=== PATIENT | male | born 1955 | race Caucasian/White ===

== ENCOUNTER 2022-10-31 17:26 | Inpatient (IN) | payer MEDICARE ==
[~2022-10-31] VITALS: Ht 175.3 cm; Wt 79.4 kg
[2022-10-31] MEDS ORDERED: LISI20TA30 PO (18:14)
[2022-10-31] MEDS ORDERED: INSU3INS6 SQ (18:14)
[2022-10-31] MEDS ORDERED: POTA20TA29 PO (18:14)
[2022-10-31] MEDS ORDERED: LEVE500T20 PO (18:14)
[2022-10-31] MEDS ORDERED: MAGN400T52 PO (18:14)
[2022-10-31] MEDS ORDERED: SERT25TA PO ×2 (18:14→18:23)
[2022-10-31] MEDS ORDERED: INSU100V39 SQ (18:14)
[2022-10-31] MEDS ORDERED: ACET-3117 PO (18:14)
[2022-10-31] MEDS ORDERED: CHLO25TA2 PO (18:14)
[2022-10-31] MEDS ORDERED: POLY17PO4 PO (18:14)
[2022-10-31] MEDS ORDERED: ENOX40DI SUBCUT (18:14)
[2022-10-31] MEDS ORDERED: SENN8.6T19 PO (18:14)
[2022-10-31 21:20] LABS: *BILIRUBIN,URIN NEGATIVE (NEGATIVE); *BLOOD, URINE NEGATIVE (NEGATIVE); *CLARITY,URINE CLEAR (CLEAR); *COLOR,URINE YELLOW (YELLOW); *KETONES,URINE NEGATIVE (NEGATIVE); *PROTEIN,URINE NEGATIVE (NEGATIVE); *UROBILINOGEN,URINE 0.2 E.U./dl (NORMAL); LEUKOCYTE ESTERASE ,URINE NEGATIVE (NEGATIVE); NITRITE, URINE NEGATIVE (NEGATIVE); PH,URINE 6.5 (5.0-8.0)
[2022-10-31 21:23] LABS: *AMPHETAMINE, URINE NEGATIVE (NEGATIVE); *BARBITURATE, URINE NEGATIVE (NEGATIVE); *BENZODIAZEPINE, URINE NEGATIVE (NEGATIVE); *CANNABINOID, URINE POSITIVE (NEGATIVE); *COCCAINE, URINE NEGATIVE (NEGATIVE); *OPIATE, URINE NEGATIVE (NEGATIVE); *PHENCYCLIDINE SCREEN,URINE NEGATIVE (NEGATIVE); FENTANYL, URINE NEGATIVE (NEGATIVE)
[2022-10-31 21:25] LABS: RBC,URINE 0-3 /HPF (0-3); UGLUCOSE 3+ (NEGATIVE); WBC,URINE 0-3 /HPF (0-3)
[2022-10-31] MEDS ORDERED: MAG HYDROX/AL HYDROX/SIMETH 30 ML LIQUID UDC PO PRN (22:30)
[2022-10-31] MEDS ORDERED: ACETAMINOPHEN 325 MG TABLET PO PRN (22:30)
[2022-10-31] MEDS ORDERED: MAGNESIUM HYDROXIDE 30 ML LIQUID UDC PO PRN (22:30)
[2022-10-31] MEDS ORDERED: BLOOD SUGAR DIAGNOSTIC 1 EACH STRIP VI ONE (22:30)
[2022-10-31 22:43] VITALS: BP 137/100; TEMP 97.9; O2SAT 97
[2022-11-01 08:04] VITALS: BP 131/91; TEMP 98.4; O2SAT 98
[2022-11-01] MEDS: VENLAFAXINE XR 37.5 MG CAP.SR.24H PO SCH (10:17)
[2022-11-01] MEDS ORDERED: DEXTROSE 50% 50 ML DISP.SYRIN IV PRN (11:00)
[2022-11-01] MEDS ORDERED: SENNOSIDES 1 TABLET PO SCH (11:00)
[2022-11-01] MEDS ORDERED: ACETAMINOPHEN 325 MG TABLET PO PRN (11:00)
[2022-11-01] MEDS: BLOOD SUGAR DIAGNOSTIC 1 EACH STRIP VI SCH ×3 (11:47→21:08)
[2022-11-01] MEDS: levETIRAcetam 500 MG TABLET PO SCH ×2 (12:27→18:45)
[2022-11-01] MEDS: CHLORTHALIDONE 25 MG TABLET PO SCH (12:27)
[2022-11-01] MEDS: LISINOPRIL 20 MG TABLET PO SCH (12:28)
[2022-11-01] MEDS: INSULIN REGULAR, HUMAN 300 UNIT/3 ML VIAL SQ PRN ×3 (12:29→21:34)
[2022-11-01] MEDS: LORAZEPAM 1 MG TABLET PO PRN (15:00)
[2022-11-01 15:35] VITALS: BP 158/106; TEMP 98; O2SAT 98
[2022-11-01 20:02] VITALS: BP 135/99; TEMP 98.2; O2SAT 98
[2022-11-01] MEDS ORDERED: INSULIN REGULAR, HUMAN 300 UNIT/3 ML VIAL ONE (21:09)
[2022-11-01] MEDS ORDERED: INSULIN GLARGINE,HUM 300 UNITS/3 ML CARTRIDGE SQ ONE (21:22)
[2022-11-01] MEDS: INSULIN GLARGINE,HUM 300 UNITS/3 ML CARTRIDGE SQ SCH (21:32)
[2022-11-02] MEDS: BLOOD SUGAR DIAGNOSTIC 1 EACH STRIP VI SCH ×5 (06:44→21:16)
[2022-11-02 07:59] VITALS: BP 151/111; TEMP 98.2; O2SAT 99
[2022-11-02] MEDS: levETIRAcetam 500 MG TABLET PO SCH ×2 (08:50→17:09)
[2022-11-02] MEDS: VENLAFAXINE XR 37.5 MG CAP.SR.24H PO SCH (08:51)
[2022-11-02] MEDS: CHLORTHALIDONE 25 MG TABLET PO SCH (08:54)
[2022-11-02] MEDS: LISINOPRIL 20 MG TABLET PO SCH (08:54)
[2022-11-02] MEDS: MIRALAX 17 GM POWD.PACK PO SCH (08:54)
[2022-11-02] MEDS: INSULIN REGULAR, HUMAN 300 UNIT/3 ML VIAL SQ PRN ×3 (08:56→17:10)
[2022-11-02] MEDS ORDERED: ENOXAPARIN SODIUM 40 MG/0.4 ML DISP.SYRIN SQ SCH (09:00)
[2022-11-02] MEDS ORDERED: SENNOSIDES 1 TABLET PO PRN (09:36)
[2022-11-02] MEDS ORDERED: DEXTROSE 50% 50 ML DISP.SYRIN IV PRN (13:00)
[2022-11-02 15:29] VITALS: BP 122/64; TEMP 98; O2SAT 99
[2022-11-02 20:00] VITALS: BP 129/99; TEMP 98.2; O2SAT 100
[2022-11-02] MEDS: INSULIN REGULAR, HUMAN 300 UNITS/3 ML VIAL SQ PRN (21:25)
[2022-11-02] MEDS: INSULIN GLARGINE,HUM 300 UNITS/3 ML CARTRIDGE SQ SCH (21:27)
[2022-11-02] MEDS: ZOLPIDEM 5 MG TABLET PO PRN (22:20)
[2022-11-03] MEDS: BLOOD SUGAR DIAGNOSTIC 1 EACH STRIP VI SCH ×4 (06:27→21:05)
[2022-11-03 08:16] VITALS: BP 116/80; TEMP 98; O2SAT 99
[2022-11-03] MEDS: VENLAFAXINE XR 37.5 MG CAP.SR.24H PO SCH (08:21)
[2022-11-03] MEDS: LISINOPRIL 20 MG TABLET PO SCH (08:21)
[2022-11-03] MEDS: levETIRAcetam 500 MG TABLET PO SCH ×2 (08:21→16:12)
[2022-11-03] MEDS: CHLORTHALIDONE 25 MG TABLET PO SCH (08:23)
[2022-11-03] MEDS: INSULIN REGULAR, HUMAN 300 UNIT/3 ML VIAL SQ PRN ×3 (08:25→16:21)
[2022-11-03] MEDS: MIRALAX 17 GM POWD.PACK PO SCH (08:26)
[2022-11-03 15:33] VITALS: BP 110/76; TEMP 98; O2SAT 98
[2022-11-03 20:11] VITALS: BP 102/65; TEMP 98.4; O2SAT 98
[2022-11-03] MEDS: INSULIN REGULAR, HUMAN 300 UNITS/3 ML VIAL SQ PRN (20:57)
[2022-11-03] MEDS: INSULIN GLARGINE,HUM 300 UNITS/3 ML CARTRIDGE SQ SCH (20:59)
[2022-11-04] MEDS: LORAZEPAM 1 MG TABLET PO PRN ×2 (04:43→10:26)
[2022-11-04] MEDS: BLOOD SUGAR DIAGNOSTIC 1 EACH STRIP VI SCH ×4 (06:30→21:04)
[2022-11-04 08:00] VITALS: BP 108/80; TEMP 98; O2SAT 98
[2022-11-04] MEDS: MIRALAX 17 GM POWD.PACK PO SCH (10:21)
[2022-11-04] MEDS: LISINOPRIL 20 MG TABLET PO SCH (10:26)
[2022-11-04] MEDS: levETIRAcetam 500 MG TABLET PO SCH ×2 (10:26→18:10)
[2022-11-04] MEDS: VENLAFAXINE XR 37.5 MG CAP.SR.24H PO SCH (10:26)
[2022-11-04] MEDS: CHLORTHALIDONE 25 MG TABLET PO SCH (10:38)
[2022-11-04] MEDS: INSULIN REGULAR, HUMAN 300 UNIT/3 ML VIAL SQ PRN ×2 (15:17→18:19)
[2022-11-04 16:17] VITALS: BP 118/77; TEMP 98.1; O2SAT 98
[2022-11-04] MEDS ORDERED: VENLAFAXINE XR 37.5 MG CAP.SR.24H PO SCH (17:00)
[2022-11-04 20:00] VITALS: BP 119/83; TEMP 98.4; O2SAT 98
[2022-11-04] MEDS: INSULIN REGULAR, HUMAN 300 UNITS/3 ML VIAL SQ PRN (21:06)
[2022-11-04] MEDS: INSULIN GLARGINE,HUM 300 UNITS/3 ML CARTRIDGE SQ SCH (21:07)
[2022-11-05] MEDS: BLOOD SUGAR DIAGNOSTIC 1 EACH STRIP VI SCH ×4 (07:01→20:43)
[2022-11-05 08:31] VITALS: BP 122/93; TEMP 98.3; O2SAT 98
[2022-11-05] MEDS: LISINOPRIL 20 MG TABLET PO SCH (08:38)
[2022-11-05] MEDS: CHLORTHALIDONE 25 MG TABLET PO SCH (08:38)
[2022-11-05] MEDS: levETIRAcetam 500 MG TABLET PO SCH ×2 (08:38→17:28)
[2022-11-05] MEDS: MIRALAX 17 GM POWD.PACK PO SCH (08:39)
[2022-11-05] MEDS: VENLAFAXINE XR 75 MG TAB.ER.24H PO SCH ×2 (12:30→17:27)
[2022-11-05 16:33] VITALS: BP 105/82; TEMP 98; O2SAT 98
[2022-11-05 20:19] VITALS: BP 121/89; TEMP 98.2; O2SAT 98
[2022-11-05] MEDS: INSULIN REGULAR, HUMAN 300 UNITS/3 ML VIAL SQ PRN (21:34)
[2022-11-05] MEDS: INSULIN GLARGINE,HUM 300 UNITS/3 ML CARTRIDGE SQ SCH (21:35)
[2022-11-05] MEDS: ZOLPIDEM 5 MG TABLET PO PRN (23:49)
[2022-11-06] MEDS: BLOOD SUGAR DIAGNOSTIC 1 EACH STRIP VI SCH ×4 (06:46→20:47)
[2022-11-06 07:48] VITALS: BP 103/52; TEMP 98.4; O2SAT 99
[2022-11-06] MEDS: CHLORTHALIDONE 25 MG TABLET PO SCH (08:40)
[2022-11-06] MEDS: levETIRAcetam 500 MG TABLET PO SCH ×2 (08:40→17:38)
[2022-11-06] MEDS: LISINOPRIL 20 MG TABLET PO SCH (08:41)
[2022-11-06] MEDS: MIRALAX 17 GM POWD.PACK PO SCH (09:00)
[2022-11-06] MEDS: VENLAFAXINE XR 75 MG TAB.ER.24H PO SCH ×2 (13:21→17:38)
[2022-11-06 16:05] VITALS: BP 129/93; TEMP 98.1; O2SAT 100
[2022-11-06] MEDS: LORAZEPAM 1 MG TABLET PO PRN (17:38)
[2022-11-06] MEDS: ZOLPIDEM 5 MG TABLET PO PRN (20:25)
[2022-11-06] MEDS: INSULIN GLARGINE,HUM 300 UNITS/3 ML CARTRIDGE SQ SCH (20:51)
[2022-11-06 20:57] VITALS: BP 130/90; TEMP 98.2; O2SAT 98
[2022-11-07 08:00] VITALS: BP 179/92; TEMP 98; O2SAT 98
[2022-11-07] MEDS: BLOOD SUGAR DIAGNOSTIC 1 EACH STRIP VI SCH ×4 (08:01→20:31)
[2022-11-07] MEDS: LISINOPRIL 20 MG TABLET PO SCH (08:56)
[2022-11-07] MEDS: CHLORTHALIDONE 25 MG TABLET PO SCH (08:56)
[2022-11-07] MEDS: levETIRAcetam 500 MG TABLET PO SCH ×2 (08:56→16:58)
[2022-11-07] MEDS: MIRALAX 17 GM POWD.PACK PO SCH (08:56)
[2022-11-07] MEDS ORDERED: diphenhydrAMINE 25 MG CAP PO PRN (09:15)
[2022-11-07] MEDS: VENLAFAXINE XR 75 MG TAB.ER.24H PO SCH ×2 (12:27→16:57)
[2022-11-07 16:09] VITALS: BP 109/75; TEMP 97.5; O2SAT 98
[2022-11-07 19:56] VITALS: BP 122/78; TEMP 98.1; O2SAT 98
[2022-11-07] MEDS: MELATONIN 3 MG TABLET PO SCH (20:31)
[2022-11-07] MEDS: INSULIN GLARGINE,HUM 300 UNITS/3 ML CARTRIDGE SQ SCH (20:33)
[2022-11-07] MEDS: INSULIN REGULAR, HUMAN 300 UNITS/3 ML VIAL SQ PRN (20:37)
[2022-11-07] MEDS: LORAZEPAM 1 MG TABLET PO PRN (23:13)
[2022-11-08] MEDS: BLOOD SUGAR DIAGNOSTIC 1 EACH STRIP VI SCH ×4 (06:25→20:52)
[2022-11-08 07:49] VITALS: BP 100/56; TEMP 97.4; O2SAT 90
[2022-11-08] MEDS: LISINOPRIL 20 MG TABLET PO SCH (09:00)
[2022-11-08] MEDS: levETIRAcetam 500 MG TABLET PO SCH ×2 (09:06→17:30)
[2022-11-08] MEDS: MIRALAX 17 GM POWD.PACK PO SCH (09:06)
[2022-11-08] MEDS: CHLORTHALIDONE 25 MG TABLET PO SCH (09:06)
[2022-11-08] MEDS: INSULIN REGULAR, HUMAN 300 UNIT/3 ML VIAL SQ PRN (13:22)
[2022-11-08] MEDS: VENLAFAXINE XR 75 MG TAB.ER.24H PO SCH ×2 (13:23→17:29)
[2022-11-08 15:33] VITALS: BP 115/83; TEMP 98.2; O2SAT 96
[2022-11-08 20:30] VITALS: BP 106/75; TEMP 98; O2SAT 98
[2022-11-08] MEDS: MELATONIN 3 MG TABLET PO SCH (20:39)
[2022-11-08] MEDS: INSULIN GLARGINE,HUM 300 UNITS/3 ML CARTRIDGE SQ SCH (20:55)
[2022-11-09] MEDS: BLOOD SUGAR DIAGNOSTIC 1 EACH STRIP VI SCH ×4 (07:15→20:34)
[2022-11-09] MEDS: LISINOPRIL 20 MG TABLET PO SCH (09:36)
[2022-11-09] MEDS: levETIRAcetam 500 MG TABLET PO SCH ×2 (09:37→17:18)
[2022-11-09] MEDS: MIRALAX 17 GM POWD.PACK PO SCH (09:37)
[2022-11-09] MEDS: CHLORTHALIDONE 25 MG TABLET PO SCH (09:38)
[2022-11-09 10:53] VITALS: BP 138/68; TEMP 98; O2SAT 98
[2022-11-09] MEDS: VENLAFAXINE XR 75 MG TAB.ER.24H PO SCH ×2 (13:27→17:18)
[2022-11-09 16:59] VITALS: BP 104/73; TEMP 98.2; O2SAT 98
[2022-11-09] MEDS: MELATONIN 3 MG TABLET PO SCH (20:30)
[2022-11-09] MEDS: INSULIN GLARGINE,HUM 300 UNITS/3 ML CARTRIDGE SQ SCH (20:34)
[2022-11-09] MEDS: INSULIN REGULAR, HUMAN 300 UNITS/3 ML VIAL SQ PRN (20:35)
[2022-11-09 21:17] VITALS: BP 96/67; TEMP 98; O2SAT 98
[2022-11-09] MEDS: LORAZEPAM 1 MG TABLET PO PRN (23:09)
[2022-11-10] MEDS: BLOOD SUGAR DIAGNOSTIC 1 EACH STRIP VI SCH ×4 (06:35→20:20)
[2022-11-10 08:00] VITALS: BP 100/67; TEMP 98.1; O2SAT 98
[2022-11-10] MEDS: LISINOPRIL 20 MG TABLET PO SCH (09:00)
[2022-11-10] MEDS: CHLORTHALIDONE 25 MG TABLET PO SCH (09:00)
[2022-11-10] MEDS: levETIRAcetam 500 MG TABLET PO SCH ×2 (09:35→17:10)
[2022-11-10] MEDS: MIRALAX 17 GM POWD.PACK PO SCH (09:36)
[2022-11-10] MEDS: VENLAFAXINE XR 75 MG TAB.ER.24H PO SCH ×2 (13:03→17:10)
[2022-11-10] MEDS: INSULIN REGULAR, HUMAN 300 UNIT/3 ML VIAL SQ PRN (13:08)
[2022-11-10 15:48] VITALS: BP 97/60; TEMP 98.1; O2SAT 96
[2022-11-10] MEDS: INSULIN GLARGINE,HUM 300 UNITS/3 ML CARTRIDGE SQ SCH (20:20)
[2022-11-10] MEDS: MELATONIN 3 MG TABLET PO SCH (20:22)
[2022-11-10 21:19] VITALS: BP 130/88; TEMP 98.2; O2SAT 99
[2022-11-11] MEDS: BLOOD SUGAR DIAGNOSTIC 1 EACH STRIP VI SCH ×4 (06:25→21:29)
[2022-11-11 07:53] VITALS: BP 97/75; TEMP 98; O2SAT 98
[2022-11-11] MEDS: levETIRAcetam 500 MG TABLET PO SCH ×2 (08:16→16:38)
[2022-11-11] MEDS: CHLORTHALIDONE 25 MG TABLET PO SCH (08:16)
[2022-11-11] MEDS: LISINOPRIL 20 MG TABLET PO SCH (08:48)
[2022-11-11] MEDS: MIRALAX 17 GM POWD.PACK PO SCH (08:48)
[2022-11-11] MEDS: ARIPIPRAZOLE 2 MG TABLET PO SCH ×2 (10:26→16:38)
[2022-11-11] MEDS: INSULIN REGULAR, HUMAN 300 UNIT/3 ML VIAL SQ PRN (11:37)
[2022-11-11] MEDS: VENLAFAXINE XR 75 MG TAB.ER.24H PO SCH ×2 (12:11→16:38)
[2022-11-11 16:31] VITALS: BP 120/83; TEMP 98.1; O2SAT 99
[2022-11-11 20:00] VITALS: BP 131/90; TEMP 97.4; O2SAT 98
[2022-11-11] MEDS: MELATONIN 3 MG TABLET PO SCH (21:20)
[2022-11-11] MEDS: INSULIN GLARGINE,HUM 300 UNITS/3 ML CARTRIDGE SQ SCH (21:29)
[2022-11-11] MEDS: INSULIN REGULAR, HUMAN 300 UNITS/3 ML VIAL SQ PRN (21:32)
[2022-11-12] MEDS: BLOOD SUGAR DIAGNOSTIC 1 EACH STRIP VI SCH ×4 (06:30→20:09)
[2022-11-12 08:04] VITALS: BP 120/82; TEMP 98.1; O2SAT 99
[2022-11-12] MEDS: ARIPIPRAZOLE 2 MG TABLET PO SCH ×2 (08:31→16:29)
[2022-11-12] MEDS: MIRALAX 17 GM POWD.PACK PO SCH (08:31)
[2022-11-12] MEDS: levETIRAcetam 500 MG TABLET PO SCH ×2 (08:31→16:30)
[2022-11-12] MEDS: CHLORTHALIDONE 25 MG TABLET PO SCH (08:31)
[2022-11-12] MEDS: LISINOPRIL 20 MG TABLET PO SCH (08:32)
[2022-11-12] MEDS: VENLAFAXINE XR 75 MG TAB.ER.24H PO SCH ×2 (12:06→16:30)
[2022-11-12 19:49] VITALS: BP 111/74; TEMP 98.3; O2SAT 98
[2022-11-12] MEDS: INSULIN GLARGINE,HUM 300 UNITS/3 ML CARTRIDGE SQ SCH (20:10)
[2022-11-12] MEDS: MELATONIN 3 MG TABLET PO SCH (20:22)
[2022-11-12] MEDS: LORAZEPAM 1 MG TABLET PO PRN (23:41)
[2022-11-13] MEDS: BLOOD SUGAR DIAGNOSTIC 1 EACH STRIP VI SCH ×3 (06:40→16:46)
[2022-11-13 07:45] VITALS: BP 114/84; TEMP 97.6; O2SAT 99
[2022-11-13] MEDS: levETIRAcetam 500 MG TABLET PO SCH ×2 (08:49→16:46)
[2022-11-13] MEDS: ARIPIPRAZOLE 2 MG TABLET PO SCH ×2 (08:49→16:46)
[2022-11-13] MEDS: CHLORTHALIDONE 25 MG TABLET PO SCH (08:49)
[2022-11-13] MEDS: LISINOPRIL 20 MG TABLET PO SCH (08:50)
[2022-11-13] MEDS: MIRALAX 17 GM POWD.PACK PO SCH (08:50)
[2022-11-13] MEDS ORDERED: VENLAFAXINE XR 150 MG CAP.SR.24H PO SCH (09:00)
[2022-11-13] MEDS ORDERED: VENLAFAXINE XR 75 MG TAB.ER.24H PO SCH (09:00)
[2022-11-13 15:04] VITALS: BP 100/52; TEMP 98; O2SAT 97
[2022-11-13] MEDS ORDERED: TRAZODONE 50 MG TABLET PO SCH (21:00)
== END 2022-11-13 18:15 | DRG 885 ==
LOC: ER 17:26 → GPS 21:10
PROVIDERS: ADMIT Psychiatry & Neurology Psychiatry
DX: F33.2 Major depressive disorder, recurrent severe without psychotic features (principal); E11.65 Type 2 diabetes mellitus with hyperglycemia; R45.851 Suicidal ideations; D68.59 Other primary thrombophilia; G40.909 Epilepsy, unspecified, not intractable, without status epilepticus; Z59.00 Homelessness unspecified; K21.9 Gastro-esophageal reflux disease without esophagitis; Z86.73 Personal history of transient ischemic attack (TIA), and cerebral infarction without residual deficits; K76.9 Liver disease, unspecified; I10 Essential (primary) hypertension; I48.91 Unspecified atrial fibrillation; Z91.148 Patient's other noncompliance with medication regimen for other reason; Z91.81 History of falling
CPT/HCPCS: 36415; 70450; J1815

== ENCOUNTER 2023-01-02 15:27 | Inpatient (IN) | payer MEDICARE ==
[~2023-01-02] VITALS: Ht 172.7 cm; Wt 80.7 kg
[~2023-01-02 15:27] MED LIST: ACET-3117 PO; CHLO25TA2 PO; INSU100V39 SQ; INSU3INS6 SQ; LEVE500T20 PO; LISI20TA30 PO; MAGN400T52 PO; POLY17PO4 PO; POTA20TA29 PO; SENN8.6T19 PO
[2023-01-02 16:22] LABS: BASOPHILS # (AUTO) 0.1 K/UL (0.0-0.2); BASOPHILS % (AUTO) 0.8 % (0.0-2.0); EOSINOPHILS # (AUTO) 0.1 K/uL (0.0-0.7); EOSINOPHILS % (AUTO) 0.8 % (0.0-7.0); HEMATOCRIT 40.8 % (36.7-47.1); HEMOGLOBIN 13.9 g/dL (12.5-16.3); LYMPHOCYTES # (AUTO) 1.6 K/uL (0.8-4.8); LYMPHOCYTES % (AUTO) 14.7 % (20.5-51.5); MEAN CORPUSCULAR HEMOGLOBIN 30.5 uug (23.8-33.4); MEAN CORPUSCULAR HGB CONC 34 g/dL (32.5-36.3); MEAN CORPUSCULAR VOLUME 89.1 fL (73.0-96.2); MONOCYTES # (AUTO) 0.9 K/uL (0.1-1.30); MONOCYTES % (AUTO) 8.6 % (0.0-11.0); NEUTROPHILS # (AUTO) 8.2 K/uL (1.8-8.9); NEUTROPHILS % (AUTO) 75.1 % (38.5-71.5); PLATELET COUNT (AUTO) 345 K/uL (152-348); RED BLOOD CELL COUNT(AUTO) 4.58 MIL/uL (4.06-5.63); RED CELL DISTRIBUTION WIDTH 14.7 % (12.1-16.2); WHITE BLOOD COUNT (AUTO) 10.9 K/uL (3.6-10.2)
[2023-01-02 16:24] LABS: DIFFERENTIAL COMMENT 1
[2023-01-02 16:28] LABS: CALCIUM 9.9 mg/dL (8.5-10.1); CARBON DIOXIDE 29 mmol/L (21-32); CHLORIDE 103 mmol/L (98-107); CREATININE 1.4 mg/dL (0.6-1.3); GLUCOSE 162 mg/dL (74-106); POTASSIUM 4.3 mmol/L (3.5-5.1); SODIUM SERUM 140 mmol/L (136-145); UREA NITROGEN, BLOOD 20 mg/dL (7-18)
[2023-01-02 16:33] LABS: ALANINE AMINOTRANSFERASE 39 U/L (16-63); ALBUMIN 3.8 g/dL (3.4-5.0); ALKALINE PHOSPHATASE 97 U/L (50-136); ASPARTATE AMINOTRANSFERASE 20 U/L (15-37); BILIRUBIN,DIRECT 0.1 mg/dL (0.0-0.2); BILIRUBIN,TOTAL 0.4 mg/dL (0.2-1.0)
[2023-01-02 16:36] LABS: ACETAMINOPHEN < 2.0 ug/mL (10-30)
[2023-01-02 16:42] LABS: ETHANOL < 3 MG/DL (0-10)
[2023-01-02] MEDS ORDERED: VENL150C2 PO (16:52)
[2023-01-02] MEDS ORDERED: MAG355OR18 PO (16:52)
[2023-01-02] MEDS ORDERED: MELA3CAP2 PO (16:52)
[2023-01-02] MEDS ORDERED: LISI20TA30 PO (16:52)
[2023-01-02] MEDS ORDERED: MAGN400O6 PO (16:52)
[2023-01-02] MEDS ORDERED: AMLO10TA59 PO (16:52)
[2023-01-02] MEDS ORDERED: LEVE1000 PO (16:52)
[2023-01-02] MEDS ORDERED: BISA10SU61 RC (16:52)
[2023-01-02] MEDS ORDERED: INSU100V7 SQ (16:52)
[2023-01-02] MEDS ORDERED: ACET325C7 PO (16:52)
[2023-01-02] MEDS ORDERED: NA P133E RC (16:52)
[2023-01-02] MEDS ORDERED: OLAN5TAB3 PO (16:52)
[2023-01-02] MEDS ORDERED: POLY17PO4 PO (16:52)
[2023-01-02] MEDS ORDERED: CHOL10005 PO (16:52)
[2023-01-02] MEDS ORDERED: ENOX40DI SQ (16:52)
[2023-01-02] MEDS ORDERED: INSU100V28 SQ (16:52)
[2023-01-02] MEDS ORDERED: PANT40TA49 PO (16:52)
[2023-01-02] MEDS ORDERED: TEMA15CA5 PO (16:52)
[2023-01-02 18:17] LABS: *BILIRUBIN,URIN NEGATIVE (NEGATIVE); *BLOOD, URINE NEGATIVE (NEGATIVE); *CLARITY,URINE CLEAR (CLEAR); *COLOR,URINE YELLOW (YELLOW); *KETONES,URINE NEGATIVE (NEGATIVE); *PROTEIN,URINE NEGATIVE (NEGATIVE); *UROBILINOGEN,URINE 0.2 E.U./dl (NORMAL); LEUKOCYTE ESTERASE ,URINE NEGATIVE (NEGATIVE); NITRITE, URINE NEGATIVE (NEGATIVE); PH,URINE 6.5 (5.0-8.0); UGLUCOSE NEGATIVE (NEGATIVE)
[2023-01-02 19:44] LABS: *AMPHETAMINE, URINE NEGATIVE (NEGATIVE); *BARBITURATE, URINE NEGATIVE (NEGATIVE); *BENZODIAZEPINE, URINE NEGATIVE (NEGATIVE); *CANNABINOID, URINE NEGATIVE (NEGATIVE); *COCCAINE, URINE NEGATIVE (NEGATIVE); *OPIATE, URINE NEGATIVE (NEGATIVE); *PHENCYCLIDINE SCREEN,URINE NEGATIVE (NEGATIVE); FENTANYL, URINE NEGATIVE (NEGATIVE)
[2023-01-02 20:30] VITALS: BP 148/115; TEMP 98.8; O2SAT 95
[2023-01-02] MEDS ORDERED: ACETAMINOPHEN 325 MG TABLET PO PRN (20:45)
[2023-01-02] MEDS ORDERED: MAG HYDROX/AL HYDROX/SIMETH 30 ML LIQUID UDC PO PRN (20:45)
[2023-01-02] MEDS ORDERED: BLOOD SUGAR DIAGNOSTIC 1 EACH STRIP VI ONE (20:45)
[2023-01-02] MEDS ORDERED: MAGNESIUM HYDROXIDE 30 ML LIQUID UDC PO PRN (20:45)
[2023-01-02] MEDS ORDERED: FLEET ENEMA 133 ML BOTTLE RC PRN (21:15)
[2023-01-02] MEDS ORDERED: BISACODYL 10 MG SUPP.RECT RC PRN (21:15)
[2023-01-02 21:21] VITALS: BP 148/115; TEMP 98.8; O2SAT 98
[2023-01-02] MEDS ORDERED: DEXTROSE 50% 50 ML DISP.SYRIN IV PRN (21:30)
[2023-01-02] MEDS ORDERED: INSULIN REGULAR, HUMAN 300 UNIT/3 ML VIAL SQ PRN (21:30)
[2023-01-03] MEDS: BLOOD SUGAR DIAGNOSTIC 1 EACH STRIP VI SCH ×4 (06:58→20:31)
[2023-01-03] MEDS: PANTOPRAZOLE SODIUM 40 MG TABLET.DR PO SCH ×2 (08:27→08:46)
[2023-01-03] MEDS: MIRALAX 17 GM POWD.PACK PO SCH ×2 (08:28→08:45)
[2023-01-03] MEDS: CHOLECALCIFEROL 1,000 UNIT TABLET PO SCH (08:28)
[2023-01-03] MEDS: LISINOPRIL 20 MG TABLET PO SCH ×2 (08:28→08:45)
[2023-01-03 08:39] VITALS: BP 150/105; TEMP 98.2; O2SAT 98
[2023-01-03] MEDS: OLANZAPINE 5 MG TABLET PO SCH ×3 (09:30→21:30)
[2023-01-03] MEDS: VENLAFAXINE XR 75 MG TAB.ER.24H PO SCH (09:30)
[2023-01-03 15:34] VITALS: BP 141/104; TEMP 98.2; O2SAT 100
[2023-01-03 20:00] VITALS: BP 118/70; TEMP 97.6; O2SAT 98
[2023-01-03] MEDS: INSULIN GLARGINE,HUM 300 UNITS/3 ML CARTRIDGE SQ SCH (20:36)
[2023-01-03] MEDS: levETIRAcetam 500 MG TABLET PO SCH (20:37)
[2023-01-03] MEDS ORDERED: MELATONIN 3 MG TABLET PO SCH (21:00)
[2023-01-04] MEDS: BLOOD SUGAR DIAGNOSTIC 1 EACH STRIP VI SCH ×4 (06:46→21:07)
[2023-01-04 07:30] VITALS: BP 154/114; TEMP 98; O2SAT 98
[2023-01-04] MEDS: OLANZAPINE 5 MG TABLET PO SCH ×2 (09:00→21:00)
[2023-01-04] MEDS: VENLAFAXINE XR 75 MG TAB.ER.24H PO SCH (09:00)
[2023-01-04] MEDS: CHOLECALCIFEROL 1,000 UNIT TABLET PO SCH (09:00)
[2023-01-04] MEDS: LISINOPRIL 20 MG TABLET PO SCH ×2 (09:00→09:43)
[2023-01-04] MEDS: MIRALAX 17 GM POWD.PACK PO SCH (09:00)
[2023-01-04] MEDS: levETIRAcetam 500 MG TABLET PO SCH ×3 (09:00→21:11)
[2023-01-04] MEDS: PANTOPRAZOLE SODIUM 40 MG TABLET.DR PO SCH (09:00)
[2023-01-04 15:11] VITALS: BP 124/83; TEMP 98; O2SAT 98
[2023-01-04] MEDS: INSULIN GLARGINE,HUM 300 UNITS/3 ML CARTRIDGE SQ SCH (21:00)
[2023-01-04] MEDS: ZOLPIDEM 5 MG TABLET PO PRN (21:12)
[2023-01-05] MEDS: BLOOD SUGAR DIAGNOSTIC 1 EACH STRIP VI SCH ×4 (07:20→21:00)
[2023-01-05] MEDS: GLUCERNA SHAKE 237 ML CAN PO SCH (08:24)
[2023-01-05] MEDS: MIRALAX 17 GM POWD.PACK PO SCH (08:24)
[2023-01-05] MEDS: PANTOPRAZOLE SODIUM 40 MG TABLET.DR PO SCH (08:24)
[2023-01-05] MEDS: LISINOPRIL 20 MG TABLET PO SCH (08:24)
[2023-01-05] MEDS: VENLAFAXINE XR 75 MG TAB.ER.24H PO SCH (08:24)
[2023-01-05] MEDS: levETIRAcetam 500 MG TABLET PO SCH ×2 (08:24→21:00)
[2023-01-05] MEDS: OLANZAPINE 5 MG TABLET PO SCH ×2 (08:25→21:00)
[2023-01-05] MEDS: CHOLECALCIFEROL 1,000 UNIT TABLET PO SCH (08:25)
[2023-01-05 09:21] LABS: THYROID STIMULATING HORMONE 2.505 mIU/mL (0.358-3.740)
[2023-01-05 10:16] VITALS: BP 156/98; TEMP 98.2; O2SAT 99
[2023-01-05 19:51] VITALS: BP 120/77; TEMP 98.3; O2SAT 99
[2023-01-05] MEDS: INSULIN GLARGINE,HUM 300 UNITS/3 ML CARTRIDGE SQ SCH (21:00)
[2023-01-06] MEDS: ZOLPIDEM 5 MG TABLET PO PRN ×2 (01:12→23:37)
[2023-01-06] MEDS: BLOOD SUGAR DIAGNOSTIC 1 EACH STRIP VI SCH ×4 (06:49→20:47)
[2023-01-06 07:59] VITALS: BP 149/106; TEMP 97.8; O2SAT 100
[2023-01-06] MEDS: VENLAFAXINE XR 75 MG TAB.ER.24H PO SCH (08:40)
[2023-01-06] MEDS: GLUCERNA SHAKE 237 ML CAN PO SCH (08:40)
[2023-01-06] MEDS: levETIRAcetam 500 MG TABLET PO SCH ×2 (08:40→20:45)
[2023-01-06] MEDS: CHOLECALCIFEROL 1,000 UNIT TABLET PO SCH (08:41)
[2023-01-06] MEDS: LISINOPRIL 20 MG TABLET PO SCH (08:41)
[2023-01-06] MEDS: MIRALAX 17 GM POWD.PACK PO SCH (08:41)
[2023-01-06] MEDS: OLANZAPINE 5 MG TABLET PO SCH ×2 (08:41→20:46)
[2023-01-06] MEDS: PANTOPRAZOLE SODIUM 40 MG TABLET.DR PO SCH (08:41)
[2023-01-06 16:45] VITALS: BP 161/98; TEMP 98; O2SAT 100
[2023-01-06 20:02] VITALS: BP 165/111; TEMP 97.9; O2SAT 98
[2023-01-06] MEDS: CLONIDINE HCL 0.1 MG TABLET PO PRN (20:46)
[2023-01-06] MEDS: INSULIN GLARGINE,HUM 300 UNITS/3 ML CARTRIDGE SQ SCH (20:47)
[2023-01-07 08:00] VITALS: BP 162/105; TEMP 98; O2SAT 98
[2023-01-07] MEDS: VENLAFAXINE XR 75 MG TAB.ER.24H PO SCH (08:30)
[2023-01-07] MEDS: BLOOD SUGAR DIAGNOSTIC 1 EACH STRIP VI SCH ×4 (08:30→20:30)
[2023-01-07] MEDS: GLUCERNA SHAKE 237 ML CAN PO SCH (08:31)
[2023-01-07] MEDS: levETIRAcetam 500 MG TABLET PO SCH ×2 (08:31→20:39)
[2023-01-07] MEDS: MIRALAX 17 GM POWD.PACK PO SCH (08:31)
[2023-01-07] MEDS: PANTOPRAZOLE SODIUM 40 MG TABLET.DR PO SCH (08:31)
[2023-01-07] MEDS: CHOLECALCIFEROL 1,000 UNIT TABLET PO SCH (08:32)
[2023-01-07] MEDS: OLANZAPINE 5 MG TABLET PO SCH ×2 (08:32→20:39)
[2023-01-07] MEDS: LISINOPRIL 20 MG TABLET PO SCH (08:55)
[2023-01-07 16:08] VITALS: BP 146/93; TEMP 98; O2SAT 98
[2023-01-07 19:59] VITALS: BP 124/85; TEMP 98.2; O2SAT 99
[2023-01-07] MEDS: INSULIN GLARGINE,HUM 300 UNITS/3 ML CARTRIDGE SQ SCH (20:41)
[2023-01-07] MEDS: ZOLPIDEM 5 MG TABLET PO PRN (21:32)
[2023-01-08] MEDS: LORAZEPAM 1 MG TABLET PO PRN (04:22)
[2023-01-08] MEDS: BLOOD SUGAR DIAGNOSTIC 1 EACH STRIP VI SCH ×4 (06:27→21:28)
[2023-01-08 07:46] VITALS: BP 150/98; TEMP 98; O2SAT 98
[2023-01-08] MEDS: LISINOPRIL 20 MG TABLET PO SCH (08:23)
[2023-01-08] MEDS: levETIRAcetam 500 MG TABLET PO SCH ×2 (08:23→20:54)
[2023-01-08] MEDS: CHOLECALCIFEROL 1,000 UNIT TABLET PO SCH (09:00)
[2023-01-08] MEDS: MIRALAX 17 GM POWD.PACK PO SCH (09:00)
[2023-01-08] MEDS: PANTOPRAZOLE SODIUM 40 MG TABLET.DR PO SCH (09:00)
[2023-01-08] MEDS: OLANZAPINE 5 MG TABLET PO SCH (09:00)
[2023-01-08] MEDS: VENLAFAXINE XR 75 MG TAB.ER.24H PO SCH (09:00)
[2023-01-08] MEDS: GLUCERNA SHAKE 237 ML CAN PO SCH (09:19)
[2023-01-08] MEDS ORDERED: OLANZAPINE 10 MG VIAL IM PRN (10:45)
[2023-01-08] MEDS ORDERED: OLANZAPINE 5 MG TABLET PO SCH (10:45)
[2023-01-08] MEDS: OLANZAPINE 2.5 MG TABLET PO SCH ×3 (13:00→16:48)
[2023-01-08 16:08] VITALS: BP 116/77; TEMP 98; O2SAT 98
[2023-01-08 19:58] VITALS: BP 144/78; TEMP 98.1; O2SAT 98
[2023-01-08] MEDS: ZOLPIDEM 5 MG TABLET PO PRN (20:55)
[2023-01-08] MEDS: INSULIN GLARGINE,HUM 300 UNITS/3 ML CARTRIDGE SQ SCH (21:32)
[2023-01-09] MEDS: BLOOD SUGAR DIAGNOSTIC 1 EACH STRIP VI SCH ×4 (06:31→20:33)
[2023-01-09 07:30] VITALS: BP 141/93; TEMP 98; O2SAT 98
[2023-01-09] MEDS: OLANZAPINE 2.5 MG TABLET PO SCH ×3 (08:36→16:56)
[2023-01-09] MEDS: PANTOPRAZOLE SODIUM 40 MG TABLET.DR PO SCH (08:36)
[2023-01-09] MEDS: CHOLECALCIFEROL 1,000 UNIT TABLET PO SCH (08:36)
[2023-01-09] MEDS: levETIRAcetam 500 MG TABLET PO SCH ×2 (08:36→20:33)
[2023-01-09] MEDS: VENLAFAXINE XR 75 MG TAB.ER.24H PO SCH (08:37)
[2023-01-09] MEDS: MIRALAX 17 GM POWD.PACK PO SCH (08:37)
[2023-01-09] MEDS: LISINOPRIL 20 MG TABLET PO SCH (08:37)
[2023-01-09] MEDS: GLUCERNA SHAKE 237 ML CAN PO SCH (08:38)
[2023-01-09 15:36] VITALS: BP 160/102; TEMP 98; O2SAT 99
[2023-01-09 20:04] VITALS: BP 130/90; TEMP 98.3; O2SAT 98
[2023-01-09] MEDS: INSULIN GLARGINE,HUM 300 UNITS/3 ML CARTRIDGE SQ SCH (20:36)
[2023-01-10] MEDS: BLOOD SUGAR DIAGNOSTIC 1 EACH STRIP VI SCH ×4 (06:24→20:19)
[2023-01-10 07:44] VITALS: BP 142/93; TEMP 97.8; O2SAT 99
[2023-01-10] MEDS: CHOLECALCIFEROL 1,000 UNIT TABLET PO SCH (08:56)
[2023-01-10] MEDS: OLANZAPINE 2.5 MG TABLET PO SCH ×3 (08:57→17:30)
[2023-01-10] MEDS: levETIRAcetam 500 MG TABLET PO SCH ×2 (08:57→20:16)
[2023-01-10] MEDS: PANTOPRAZOLE SODIUM 40 MG TABLET.DR PO SCH (08:57)
[2023-01-10] MEDS: VENLAFAXINE XR 75 MG TAB.ER.24H PO SCH (08:57)
[2023-01-10] MEDS: MIRALAX 17 GM POWD.PACK PO SCH (08:58)
[2023-01-10] MEDS: GLUCERNA SHAKE 237 ML CAN PO SCH (08:59)
[2023-01-10] MEDS: LISINOPRIL 20 MG TABLET PO SCH (09:00)
[2023-01-10 16:18] VITALS: BP 152/99; TEMP 98.2; O2SAT 99
[2023-01-10 20:00] VITALS: BP 142/96; TEMP 97.5; O2SAT 98
[2023-01-10] MEDS: INSULIN GLARGINE,HUM 300 UNITS/3 ML CARTRIDGE SQ SCH (20:20)
[2023-01-11] MEDS: ZOLPIDEM 5 MG TABLET PO PRN (00:57)
[2023-01-11] MEDS: BLOOD SUGAR DIAGNOSTIC 1 EACH STRIP VI SCH ×4 (07:30→20:59)
[2023-01-11 07:33] VITALS: BP 145/70; TEMP 98.2; O2SAT 99
[2023-01-11] MEDS: VENLAFAXINE XR 75 MG TAB.ER.24H PO SCH (08:50)
[2023-01-11] MEDS: levETIRAcetam 500 MG TABLET PO SCH ×2 (08:50→21:00)
[2023-01-11] MEDS: PANTOPRAZOLE SODIUM 40 MG TABLET.DR PO SCH (08:50)
[2023-01-11] MEDS: CHOLECALCIFEROL 1,000 UNIT TABLET PO SCH (08:50)
[2023-01-11] MEDS: LISINOPRIL 20 MG TABLET PO SCH (08:50)
[2023-01-11] MEDS: OLANZAPINE 2.5 MG TABLET PO SCH ×3 (08:50→16:27)
[2023-01-11] MEDS: GLUCERNA SHAKE 237 ML CAN PO SCH (08:51)
[2023-01-11] MEDS: MIRALAX 17 GM POWD.PACK PO SCH (08:51)
[2023-01-11 15:17] VITALS: BP 130/95; TEMP 98.1; O2SAT 98
[2023-01-11 20:00] VITALS: BP 124/85; TEMP 98; O2SAT 98
[2023-01-11] MEDS: INSULIN GLARGINE,HUM 300 UNITS/3 ML CARTRIDGE SQ SCH (21:16)
[2023-01-12] MEDS: BLOOD SUGAR DIAGNOSTIC 1 EACH STRIP VI SCH ×4 (06:36→20:43)
[2023-01-12 07:30] VITALS: BP 128/94; TEMP 98.4
[2023-01-12] MEDS ORDERED: OLANZAPINE 10 MG VIAL IM PRN (08:15)
[2023-01-12] MEDS ORDERED: OLANZAPINE 2.5 MG TABLET PO SCH (09:00)
[2023-01-12] MEDS: MIRALAX 17 GM POWD.PACK PO SCH (09:05)
[2023-01-12] MEDS: PANTOPRAZOLE SODIUM 40 MG TABLET.DR PO SCH (09:05)
[2023-01-12] MEDS: CHOLECALCIFEROL 1,000 UNIT TABLET PO SCH (09:05)
[2023-01-12] MEDS: OLANZAPINE 5 MG TABLET PO SCH ×2 (09:05→20:43)
[2023-01-12] MEDS: VENLAFAXINE XR 75 MG TAB.ER.24H PO SCH (09:05)
[2023-01-12] MEDS: levETIRAcetam 500 MG TABLET PO SCH ×2 (09:05→20:43)
[2023-01-12] MEDS: LISINOPRIL 20 MG TABLET PO SCH (09:06)
[2023-01-12] MEDS: GLUCERNA SHAKE 237 ML CAN PO SCH (09:07)
[2023-01-12 16:00] VITALS: BP 132/95; TEMP 97
[2023-01-12 20:03] VITALS: BP 132/98; TEMP 97.9; O2SAT 98
[2023-01-12] MEDS: INSULIN GLARGINE,HUM 300 UNITS/3 ML CARTRIDGE SQ SCH (20:46)
[2023-01-13] MEDS: BLOOD SUGAR DIAGNOSTIC 1 EACH STRIP VI SCH ×4 (06:22→19:58)
[2023-01-13 07:54] VITALS: BP 110/74; TEMP 98; O2SAT 98
[2023-01-13] MEDS: PANTOPRAZOLE SODIUM 40 MG TABLET.DR PO SCH (08:35)
[2023-01-13] MEDS: MIRALAX 17 GM POWD.PACK PO SCH (08:35)
[2023-01-13] MEDS: levETIRAcetam 500 MG TABLET PO SCH ×2 (08:35→20:08)
[2023-01-13] MEDS: VENLAFAXINE XR 75 MG TAB.ER.24H PO SCH (08:35)
[2023-01-13] MEDS: OLANZAPINE 5 MG TABLET PO SCH ×2 (08:35→20:10)
[2023-01-13] MEDS: CHOLECALCIFEROL 1,000 UNIT TABLET PO SCH (08:35)
[2023-01-13] MEDS: LISINOPRIL 20 MG TABLET PO SCH (09:07)
[2023-01-13] MEDS: GLUCERNA SHAKE 237 ML CAN PO SCH (09:07)
[2023-01-13 16:12] VITALS: BP 120/83; TEMP 98; O2SAT 98
[2023-01-13] MEDS: CLONIDINE HCL 0.1 MG TABLET PO PRN (19:49)
[2023-01-13 20:00] VITALS: BP 154/98; TEMP 97.5; O2SAT 98
[2023-01-13] MEDS: INSULIN GLARGINE,HUM 300 UNITS/3 ML CARTRIDGE SQ SCH (20:11)
[2023-01-14] MEDS: BLOOD SUGAR DIAGNOSTIC 1 EACH STRIP VI SCH ×4 (06:10→20:42)
[2023-01-14 07:42] VITALS: BP 127/95; TEMP 98; O2SAT 97
[2023-01-14] MEDS: CHOLECALCIFEROL 1,000 UNIT TABLET PO SCH (08:43)
[2023-01-14] MEDS: VENLAFAXINE XR 75 MG TAB.ER.24H PO SCH (08:43)
[2023-01-14] MEDS: OLANZAPINE 5 MG TABLET PO SCH ×2 (08:43→20:42)
[2023-01-14] MEDS: PANTOPRAZOLE SODIUM 40 MG TABLET.DR PO SCH (08:43)
[2023-01-14] MEDS: MIRALAX 17 GM POWD.PACK PO SCH (08:44)
[2023-01-14] MEDS: LISINOPRIL 20 MG TABLET PO SCH (08:44)
[2023-01-14] MEDS: levETIRAcetam 500 MG TABLET PO SCH ×2 (08:44→20:43)
[2023-01-14] MEDS: GLUCERNA SHAKE 237 ML CAN PO SCH (08:45)
[2023-01-14 16:25] VITALS: BP 112/82; TEMP 98; O2SAT 98
[2023-01-14 19:51] VITALS: BP 124/88; TEMP 98.2; O2SAT 99
[2023-01-14] MEDS: LORAZEPAM 1 MG TABLET PO PRN (20:30)
[2023-01-14] MEDS: INSULIN GLARGINE,HUM 300 UNITS/3 ML CARTRIDGE SQ SCH (20:47)
[2023-01-15] MEDS: BLOOD SUGAR DIAGNOSTIC 1 EACH STRIP VI SCH ×4 (06:43→21:24)
[2023-01-15 08:00] VITALS: BP 137/87; TEMP 98.3
[2023-01-15] MEDS: levETIRAcetam 500 MG TABLET PO SCH ×2 (08:58→21:23)
[2023-01-15] MEDS: PANTOPRAZOLE SODIUM 40 MG TABLET.DR PO SCH (08:58)
[2023-01-15] MEDS: CHOLECALCIFEROL 1,000 UNIT TABLET PO SCH (08:58)
[2023-01-15] MEDS: OLANZAPINE 5 MG TABLET PO SCH ×2 (08:58→21:23)
[2023-01-15] MEDS: VENLAFAXINE XR 75 MG TAB.ER.24H PO SCH (08:59)
[2023-01-15] MEDS: MIRALAX 17 GM POWD.PACK PO SCH (08:59)
[2023-01-15] MEDS: LISINOPRIL 20 MG TABLET PO SCH (08:59)
[2023-01-15] MEDS: GLUCERNA SHAKE 237 ML CAN PO SCH (09:00)
[2023-01-15 16:00] VITALS: BP 154/89; TEMP 98
[2023-01-15] MEDS: INSULIN GLARGINE,HUM 300 UNITS/3 ML CARTRIDGE SQ SCH (21:00)
[2023-01-15] MEDS: LORAZEPAM 1 MG TABLET PO PRN (21:23)
[2023-01-15 23:43] VITALS: BP 149/90; TEMP 97.6; O2SAT 96
[2023-01-16] MEDS: BLOOD SUGAR DIAGNOSTIC 1 EACH STRIP VI SCH ×2 (06:17→11:30)
[2023-01-16 08:00] VITALS: BP 151/118; TEMP 97.2
[2023-01-16] MEDS: VENLAFAXINE XR 75 MG TAB.ER.24H PO SCH (08:47)
[2023-01-16] MEDS: CHOLECALCIFEROL 1,000 UNIT TABLET PO SCH (08:47)
[2023-01-16 08:48] VITALS: BP 151/118
[2023-01-16] MEDS: OLANZAPINE 5 MG TABLET PO SCH (08:48)
[2023-01-16] MEDS: levETIRAcetam 500 MG TABLET PO SCH (08:48)
[2023-01-16] MEDS: MIRALAX 17 GM POWD.PACK PO SCH (08:48)
[2023-01-16] MEDS: PANTOPRAZOLE SODIUM 40 MG TABLET.DR PO SCH (08:48)
[2023-01-16] MEDS: LISINOPRIL 20 MG TABLET PO SCH (08:48)
[2023-01-16] MEDS: GLUCERNA SHAKE 237 ML CAN PO SCH (08:49)
== END 2023-01-16 12:00 | DRG 885 ==
LOC: ER 15:30 → GPS 20:17
PROVIDERS: ADMIT Psychiatry & Neurology Psychiatry; ATTEND Nurse Practitioner Acute Care
DX: F33.3 Major depressive disorder, recurrent, severe with psychotic symptoms (principal); N17.9 Acute kidney failure, unspecified; N18.9 Chronic kidney disease, unspecified; F03.918 Unspecified dementia, unspecified severity, with other behavioral disturbance; F03.93 Unspecified dementia, unspecified severity, with mood disturbance; G40.909 Epilepsy, unspecified, not intractable, without status epilepticus; D72.829 Elevated white blood cell count, unspecified; E11.22 Type 2 diabetes mellitus with diabetic chronic kidney disease; E78.5 Hyperlipidemia, unspecified; I48.91 Unspecified atrial fibrillation; K59.00 Constipation, unspecified; Z79.4 Long term (current) use of insulin; Z86.73 Personal history of transient ischemic attack (TIA), and cerebral infarction without residual deficits; Z20.822 Contact with and (suspected) exposure to COVID-19; F29 Unspecified psychosis not due to a substance or known physiological condition; F39 Unspecified mood [affective] disorder; E83.9 Disorder of mineral metabolism, unspecified; Z79.899 Other long term (current) drug therapy; I12.9 Hypertensive chronic kidney disease with stage 1 through stage 4 chronic kidney disease, or unspecified chronic kidney disease; G47.00 Insomnia, unspecified; M89.8X9 Other specified disorders of bone, unspecified site; F25.1 Schizoaffective disorder, depressive type
CPT/HCPCS: 36415; 82747; 83921; 84443; 85014; 85025; G0480; J1815; J2358